=== PATIENT | male | born 1995 | race African-American/Black ===

== ENCOUNTER 2020-05-12 20:39 | Emergency (ER) | payer OTHER ==
[~2020-05-12] VITALS: Ht 170.2 cm; Wt 68.4 kg
--- NOTE | 2020-05-12 20:42 | PHYS DOC ---
Past History Past Medical History History of chlamydia-treated General Adult HPI: HPI: ".. I have been feeling sick for a few days now... Fever, chills, achy, sweaty, dizzy,... And I vomited once yesterday and I vomited again today vomit today was just gastric acid... I am supposed to go to [facility] tomorrow for the symptoms but I could not wait"... 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 Patient recently transferred to [place] from [place] in December. No recent travel overseas assignments. No specific ill contacts. Has been having symptoms for for 1 to 2 weeks. Patient states he completed a second Moderna vaccination yesterday. Patient normally healthy. Denies any previous illness other than chlamydia which was treated. Has had approximately 10 lifetime sex partners unprotected. Patient denies any recent dysuria or discharge. Patient denies any history of immunosuppression or other health history. Patient has been using djni-[id number]-[id number] aspirin, TheraFlu, and cold medications with no relief of symptoms. Does have a scheduled appointment tomorrow at [facility] for follow-up on current symptoms. Patient denies any bad food intake. Has not taken in much fluids because of nausea. Has been in the armed services past 4 years. No history of trauma. Patient does not think the second motor shot gave him any of the current symptoms since they started before the vaccination. [place] No contact with animals. Review of Systems: Review of Systems: Constitutional: Complains of fever or chills Eyes: Denies change in visual acuity HENT: D complains of nasal congestion and sore throat Respiratory: Complains of a nonproductive cough and occasional wheezing Cardiovascular: Denies chest pain or edema GI: Complains of generalized abdominal pain, nausea, vomiting, and reflux. Denies bloody stools or diarrhea : Denies dysuria Musculoskeletal: Complains of generalized muscle and bone pain. Complains of generalized back pain and joint pain Integument: Denies rash Neurologic: Complains of mild cephalgia, denies focal weakness or sensory changes . Endocrine: Denies polyuria or polydipsia Lymphatic: Denies swollen glands Psychiatric: Denies depression or anxiety Family History: Family History: There is a family history of diabetes and hypertension but well past age 70 and family members. Some family members have lived to 90s Current Medications: Current Meds: Has been using kxwe-[id number] TheraFlu flu, aspirin, and cold medications Allergies: Allergies: No known allergies to meds. Physical Exam: PE: Constitutional: Well developed, well nourished, reports acute distress, non- toxic appearance. [] HENT: Normocephalic, atraumatic, bilateral external ears normal, oropharynx dry, no oral exudates, nose slightly swollen turbinates with clear rhinorrhea. Postnasal drainage with some erythema Eyes: PERRLA, EOMI, conjunctiva normal, no discharge. [] Neck: Normal range of motion, no tenderness, supple, no stridor. [] Cardiovascular: Tachycardia heart rate regular rhythm, no murmur [] Lungs & Thorax: Bilateral breath sounds equal apex with couple scattered areas of wheezing particularly in bases on auscultation [] Abdomen: Bowel sounds hyperactive, soft, no tenderness, no masses, no pulsatile masses. [] Circumcised male. Testicles descended. No penile discharge. No groin adenopathy Skin: Warm, diaphoretic, no erythema, no rash. Multiple tattoos Back: No tenderness, no CVA tenderness. [] Extremities: No tenderness, no cyanosis, no clubbing, ROM intact, no edema. No cording appreciated Neurologic: Alert and oriented X 3, moves all extremities on request, does have distal sensory no focal deficits noted. [] DTRs +2 patella and brachial Psychologic: Affect anxious, judgement normal, mood normal. [] EKG: EKG: My interpretation EKG shows a sinus rhythm at 80 bpm. Mild leftward axis. But no findings acute STEMI with contralateral changes. [] Radiology/Procedures: Radiology/Procedures: [][address] [address] IMAGING REPORT Signed PATIENT: GLORY DALAL ACCOUNT: [id number] : 1995 LOCATION: ER AGE: 24 SEX: M EXAM STATUS: PRE ER ORD. PHYSICIAN: RASHEEDA FISH MD REASON: n,v, reflux, pain PROCEDURE: ACUTE ABDOMEN SERIES Exam: Acute abdominal series INDICATION: Nausea, vomiting, reflux TECHNIQUE: Frontal view of chest with upright and supine views of the abdomen Comparisons: None FINDINGS: The cardiomediastinal silhouette and pulmonary vessels are within normal limits. The lung and pleural spaces are clear. Air and stool are noted throughout the colon to level the rectum in a nonobstructive bowel gas pattern. No suspicious masses or calcifications. Visualized osseous structures are unremarkable. IMPRESSION: 1. Nonobstructive bowel gas pattern. 2. No acute cardiopulmonary process. Electronically signed by: Kwabena Dixon MD (05/12/2020 10:07 PM) [facility] DICTATED AND SIGNED BY: KWABENA DIXON MD DATE: 05/12/202205 CC: RASHEEDA FISH MD; PCP,UNKNOWN ~MTH0 0 Heart Score: HEART Score for Chest Pain: HEART Score for Chest Pain Response (Comments) Value History Slighlty/Non-Suspicious 0 ECG Normal 0 Age < 45 0 Risk Factors No Risk Factors 0 Total 0 Risk Factors: Risk Factors: DM, Current or recent (<one month) smoker, HTN, HLP, family history of CAD, obesity. Risk Scores: Score 0 - 3: 2.5% MACE over next 6 weeks - Discharge Home Score 4 - 6: 20.3% MACE over next 6 weeks - Admit for Clinical Observation Score 7 - 10: 72.7% MACE over next 6 weeks - Early Invasive Strategies Course & Med Decision Making: Course & Med Decision Making Patient push fluids. Take Tylenol and ibuprofen for pain. Or fever. Patient take Zofran as needed for nausea and vomiting. Patient remain on clear fluids next 2 days. No solids or milk products. Must allow bowel rest. Keep follow-up with [facility]. Consider getting rapid Covid at [facility]. Follow-up Covid test here. For marked discomfort may take Vicoprofen up to 4 times a day. Pertinent Labs and Imaging studies reviewed. (See chart for details) patient currently has a negative flu and negative strep test. Recommend patient stay on isolation until results of current Covid test or a rapid Covid test. Must wear a mask outside of home. Return if any concerns. Patient received LR IV fluids, Toradol, Zofran, Pepcid and Tylenol. Impression: 1. Viral syndrome 2. Dehydration creatinine 1.4 [] Dragon Disclaimer: Dragon Disclaimer: This electronic medical record was generated, in whole or in part, using a voice recognition dictation system. Departure Departure: Referrals: PCP,UNKNOWN (PCP) Scripts Famotidine (PEPCID) 20 Mg Tablet 20 MG PO BID for gerd, #60 TAB Prov: RASHEEDA FISH MD 05/12/20 Hydrocodone/Ibuprofen (HYDROCODONE-IBUPROFEN 7.5-200 ) 1 Each Tablet 1 TAB PO PRN Q6HRS PRN for PAIN, #30 TAB 0 Refills Prov: RASHEEDA FISH MD 05/12/20 Ondansetron Hcl (ZOFRAN) 4 Mg Tablet 8 MG PO QIDPRN PRN for NAUSEA/VOMITING, #30 TAB Prov: RASHEEDA FISH MD 05/12/20 Dragon Disclaimer This chart was dictated in whole or in part using Voice Recognition software in a busy, high-work load, and often noisy Emergency Department environment. It may contain unintended and wholly unrecognized errors or omissions. RASHEEDA FISH MD May 12, 2020 20:42
[2020-05-12 21:49] LABS: BASO % 1 % (0-3); EOS # 0.1 x10^3/uL (0.0-0.7); EOS % 1 % (0-3); HEMATOCRIT 47.1 % (39.0-53.0); HEMOGLOBIN 15.9 g/dL (13.0-17.5); LYMPH # 1.8 x10^3/uL (1.0-4.8); LYMPH % 20 % (24-48); MEAN CORPUSCULAR HEMOGLOBIN 32 pg (25-35); MEAN CORPUSCULAR HGB CONC 34 g/dL (31-37); MEAN CORPUSCULAR VOLUME 93 fL (79-100); MONO # 1.6 x10^3/uL (0.0-1.1); MONO % 18 % (0-9); NEUT # 5.5 x10^3uL (1.8-7.7); NEUT % 61 % (31-73); PLATELET COUNT 197 x10^3/uL (140-400); RED BLOOD COUNT 5.05 x10^6/uL (4.30-5.70)
[2020-05-12 21:51] LABS: CALCIUM 9.7 mg/dL (8.5-10.1); CREATININE 1.4 mg/dL (0.7-1.3); GFR 62.8; POTASSIUM 3.9 mmol/L (3.5-5.1)
[2020-05-12 21:58] LABS: ALBUMIN 3.9 g/dL (3.4-5.0); DIRECT BILIRUBIN 0.2 mg/dL (0.0-0.2); TOTAL BILIRUBIN 0.7 mg/dL (0.2-1.0); TOTAL PROTEIN 7.6 g/dL (6.4-8.2)
[2020-05-12] MEDS ORDERED: ONDANSETRON PF 4 MG/2 ML VIAL. IVP ONE (22:00)
[2020-05-12] MEDS ORDERED: FAMOTIDINE 20 MG/2 ML VIAL IVP ONE (22:00)
[2020-05-12] MEDS ORDERED: KETOROLAC 30 MG/ML VIAL. IVP ONE (22:00)
[2020-05-12] MEDS ORDERED: IV RINGERS SOLUTION,LACTATED 1,000 ML IV SCH (22:00)
[2020-05-12] MEDS ORDERED: ACETAMINOPHEN 500 MG TABLET PO ONE (22:00)
[2020-05-12 22:02] LABS: BILIRUBIN,URINE SMALL (NEG); CLARITY,URINE CLEAR; COLOR,URINE YELLOW; GLUCOSE,URINE NEG (NEG); NITRITE,URINE NEG (NEG)
[2020-05-12 22:03] LABS: BACTERIA,URINE 0 /HPF (0-FEW); SQUAMOUS EPITHELIAL CELL,UR OCC /LPF; WBC,URINE OCC /HPF (0-4)
--- NOTE | 2020-05-12 22:09 | RAD ---
Exam: Acute abdominal series INDICATION: Nausea, vomiting, reflux TECHNIQUE: Frontal view of chest with upright and supine views of the abdomen Comparisons: None FINDINGS: The cardiomediastinal silhouette and pulmonary vessels are within normal limits. The lung and pleural spaces are clear. Air and stool are noted throughout the colon to level the rectum in a nonobstructive bowel gas patter n. No suspicious masses or calcifications. Visualized osseous structures are unremarkable. IMPRESSION: 1. Nonobstructive bowel gas pattern. 2. No acute cardiopulmonary process. Electronically signed by: Kwabena Jose MD (05/12/2020 10:07 PM) [facility]
[2020-05-12 22:15] LABS: INFLUENZA A PATIENT NEGATIVE (NEGATIVE); INFLUENZA B PATIENT NEGATIVE (NEGATIVE)
--- NOTE | 2020-05-12 22:59 | EKG ---
[address] [address] Test Date: 2020-05-12 Test Time: 22:04:21 Pat Name: GLORY DALAL Department: Room: Gender: M Phytopathologist: PHILLIP : 1995 Requested By: RASHEEDA FISH Order Number: [id number] Reading MD: Measurements Intervals Thompson Rate: 80 P: -19 NC: 162 QRS: -14 QRSD: 82 T: 15 QT: 350 QTc: 407 Interpretive Statements SINUS RHYTHM LEFTWARD AXIS OTHERWISE NORMAL ECG RI6.02 No previous ECG available for comparison
[2020-05-12] MEDS ORDERED: ONDA4TAB7 PO (23:38)
[2020-05-12] MEDS ORDERED: HYDR-1179 PO (23:38)
[2020-05-12] MEDS ORDERED: FAMO-63 PO (23:38)
[2020-05-12 23:45] VITALS: BP 118/85
== END 2020-05-12 23:45 | disposition home or self-care (01) ==
LOC: ER 20:39
DX: E86.0 Dehydration (principal); B34.9 Viral infection, unspecified; R51.9 Headache, unspecified; R10.13 Epigastric pain; Z20.822 Contact with and (suspected) exposure to COVID-19
CPT/HCPCS: 36415; 74022; 80048; 80076; 81001; 82550; 83605; 83690; 84484; 85025; 85610; 85730; 87070; 87804; 87880; 93005; 96361; 96374; 96375; 99285; C9803; J1885; J2405; J3490; J7120; U0003

== ENCOUNTER 2020-10-01 23:59 | Emergency (ER) | payer OTHER ==
[~2020-10-01] VITALS: Ht 170.2 cm; Wt 72.7 kg
[~2020-10-01 23:59] MED LIST: FAMO-63 PO; HYDR-1179 PO; ONDA4TAB7 PO
[2020-10-02 00:20] VITALS: BP 137/57
[2020-10-02] MEDS ORDERED: LIDOCAINE 1%/EPI 1:100,000 10 ML VIAL. ONE (00:34)
[2020-10-02] MEDS ORDERED: NEOMY/BACITR/POLYMYXIN OINT PACKET. TP ONE (01:00)
[2020-10-02] MEDS ORDERED: LIDOCAINE 1%/EPI 1:100,000 20 ML VIAL. IJ ONE (01:00)
[2020-10-02] MEDS ORDERED: LIDOCAINE 2%/EPI 1:100,000 20 ML VIAL. IJ ONE (01:00)
--- NOTE | 2020-10-02 01:16 | PHYS DOC ---
Past History Past Medical History: No Pertinent History Past Surgical History: No Surgical History Smoking: Non-smoker Alcohol Use: Occasionally Drug Use: None General Adult EDM: Chief Complaint: FINGER INJURY HPI: HPI: Patient is a 24 year old male who presents with thumb injury that occurred at approx 1600 hrs yesterday when caught thumb in metal door. Thumb will no stop bleeding despite pressure bandaging. Review of Systems: Review of Systems: Constitutional: Denies fever or chills Eyes: Denies redness or eye pain HENT: Denies nasal congestion or sore throat Respiratory: Denies cough or shortness of breath Cardiovascular: Denies chest pain or palpitations GI: Denies abdominal pain, nausea, or vomiting : Denies dysuria or hematuria Musculoskeletal: Denies back pain or joint pain Integument: Denies rash or skin lesions Neurologic: Denies headache, focal weakness or sensory changes Complete systems were reviewed and found to be within normal limits, except as documented in this note. Current Medications: Current Meds: Current Medications Medications (Trade) Dose Ordered Sig/Katarzyna Start Time Stop Time Status Last Admin Dose Admin Lidocaine/ Epinephrine (Xylocaine 1%-Epi 1:100,000) 10 ml STK-MED ONCE 10/02/20 00:34 10/02/20 00:34 DC Lidocaine/ Epinephrine (Xylocaine 2%-Epi 1:100,000) 20 ml 1X ONCE 10/02/20 01:00 10/02/20 00:29 DC Neomycin/ Polymyxin/ Bacitracin (Triple Antibiotic Ointment) 1 pkt 1X ONCE 10/02/20 01:00 10/02/20 01:01 DC 10/02/20 00:38 1 PKT Allergies: Allergies: Allergies Coded Allergies Type Severity Reaction Last Updated Verified No Known Drug Allergies 05/12/20 No Physical Exam: PE: Constitutional: Well developed, well nourished, no acute distress, non-toxic appearance HENT: Normocephalic, atraumatic Eyes: EOMI, conjunctiva normal, no discharge Neck: Normal range of motion, no tenderness, supple Lungs & Thorax: No respiratory distress, equal chest rise and fall Cardiovascular: Regular rate and rhythm. No murmurs. Abdomen: Soft, no tenderness Skin: Warm, dry, no erythema, no rash Back: No tenderness, no CVA tenderness Extremities: No tenderness, ROM intact, no edema. Injury to medial right thumb. Neurologic: Alert and oriented X 3, normal motor function, normal sensory function, no focal deficits noted Psychologic: Affect normal, judgment normal Current Patient Data: Vital Signs: Vital Signs Date Time Temp Pulse Resp B/P (MAP) Pulse Ox O2 Delivery O2 Flow Rate FiO2 10/02/20 00:20 98.6 69 14 137/57 100 Room Air EKG: EKG: [] Radiology/Procedures: Radiology/Procedures: [] Heart Score: C/O Chest Pain: N/A Course & Med Decision Making: Course & Med Decision Making Pt presented with right thumb injury with continuously bleeding. Sutures would be unsuitable to close wound or control bleeding. Bleeding controlled through electrocautery followed by bandaging. Patient stable for discharge with outpatient follow-up with PCP. Discussed findings and plan with patient, who acknowledges understanding and agreement. Eva Disclaimer: Eva Disclaimer: This electronic medical record was generated, in whole or in part, using a voice recognition dictation system. Departure Departure: Impression: Primary Impression: Avulsion of skin of finger Qualified Codes: S61.209A - Unspecified open wound of unspecified finger without damage to nail, initial encounter Disposition: HOME / SELF CARE / HOMELESS Condition: STABLE Referrals: PCP,UNKNOWN (PCP) Patient Instructions: Deep Skin Avulsion Additional Instructions: Do not soak your wound. You may shower. Clean wound daily with soap and water. Change dressing 2 times daily. Use over the counter antibiotic ointment with each dressing change. Use [id number] ibuprofen and/or Tylenol for pain or discomfort. DIAZ SOFIA DO Oct 02, 2020 01:16
== END 2020-10-02 01:24 | disposition home or self-care (01) ==
LOC: ER 23:59
DX: S61.101A Unspecified open wound of right thumb with damage to nail, initial encounter (principal); W23.0XXA Caught, crushed, jammed, or pinched between moving objects, initial encounter; Y93.89 Activity, other specified; Y92.89 Other specified places as the place of occurrence of the external cause; Y99.8 Other external cause status
CPT/HCPCS: 99283

== ENCOUNTER 2020-12-31 12:27 | Emergency (ER) | payer OTHER ==
[~2020-12-31] VITALS: Ht 170.2 cm; Wt 74.4 kg
[2020-12-31 12:27] VITALS: BP 124/75
--- NOTE | 2020-12-31 12:53 | PHYS DOC ---
Past History Past Medical History: No Pertinent History Past Surgical History: No Surgical History Smoking: Non-smoker Alcohol Use: Occasionally Drug Use: None General Adult EDM: Chief Complaint: TESTICULAR PAIN OR INJURY HPI: HPI: 25-year-old male presents to the emergency department complaining of right flank pain and right testicular pain for the last several hours. He reports mild urinary difficulty today as well, has not noticed any blood. He has not had this pain before and states his pain is dull and located only on the right side. He denies any associated nausea vomiting or stool changes besides a little bit of diarrhea which she is unconcerned about. He is not taking anything for pain is refusing pain medicine at this time. The patient denies nausea, vomiting, fever, chills, chest pain, shortness of breath, cough, recent trauma, or any other complaints. Review of Systems: Review of Systems: ROS is otherwise negative except for what was mentioned in the HPI Family History: Family History: Noncontributory Allergies: Allergies: Allergies Coded Allergies Type Severity Reaction Last Updated Verified No Known Drug Allergies 05/12/20 No Physical Exam: PE: Constitutional: No acute distress, non-toxic appearance. HENT: Atraumatic, bilateral external ears normal, nose normal. Eyes: PERRLA, EOMI, conjunctiva normal, no discharge. Neck: Normal range of motion, supple, no stridor. Cardiovascular: Heart rate regular rhythm. 2+ radial pulses Lungs & Thorax: No respiratory distress, symmetrical expansion. Abdomen: Soft, no tenderness. No CVA tenderness Genitourinary: Right testicular tenderness to palpation, no obvious mass, no epididymal tenderness, no penile discharge, no penile lesions Skin: Warm, dry. Extremities: No tenderness, no cyanosis, ROM intact, no edema. Neurologic: Alert and oriented X 3, normal motor function, normal sensory function, no focal deficits noted. Non ataxic gait. GCS 15. Psychologic: Affect normal, judgment normal, mood normal. Current Patient Data: Labs: Laboratory Tests Test 12/31/20 12:36 12/31/20 13:19 Urine Collection Type Unknown Urine Color Yellow Urine Clarity Clear Urine pH 7.0 Urine Specific [place] 1.020 Urine Protein Neg (NEG-TRACE) Urine Glucose (UA) Neg mg/dL (NEG) Urine Ketones (Stick) Neg mg/dL (NEG) Urine Blood Mod (NEG) Urine Nitrite Neg (NEG) Urine Bilirubin Neg (NEG) Urine Urobilinogen Dipstick 0.2 mg/dL (0.2 mg/dL) Urine Leukocyte Esterase Neg (NEG) Urine RBC 20-40 /HPF (0-2) Urine WBC Occ /HPF (0-4) Urine Squamous Epithelial Cells Few /LPF Urine Bacteria 0 /HPF (0-FEW) White Blood Count 6.9 x10^3/uL (4.0-11.0) Red Blood Count 4.68 x10^6/uL (4.30-5.70) Hemoglobin 14.8 g/dL (13.0-17.5) Hematocrit 44.1 % (39.0-53.0) Mean Corpuscular Volume 94 fL (79-100) Mean Corpuscular Hemoglobin 32 pg (25-35) Mean Corpuscular Hemoglobin Concent 34 g/dL (31-37) Red Cell Distribution Width 13.2 % (11.5-14.5) Platelet Count 240 x10^3/uL (140-400) Neutrophils (%) (Auto) 58 % (31-73) Lymphocytes (%) (Auto) 25 % (24-48) Monocytes (%) (Auto) 9 % (0-9) Eosinophils (%) (Auto) 6 % (0-3) H Basophils (%) (Auto) 2 % (0-3) Neutrophils # (Auto) 4.1 x10^3uL (1.8-7.7) Lymphocytes # (Auto) 1.7 x10^3/uL (1.0-4.8) Monocytes # (Auto) 0.6 x10^3/uL (0.0-1.1) Eosinophils # (Auto) 0.4 x10^3/uL (0.0-0.7) Basophils # (Auto) 0.1 x10^3/uL (0.0-0.2) Sodium Level 139 mmol/L (136-145) Potassium Level 4.0 mmol/L (3.5-5.1) Chloride Level 103 mmol/L (98-107) Carbon Dioxide Level 31 mmol/L (21-32) Anion Gap 5 (6-14) L Blood Urea Nitrogen 9 mg/dL (8-26) Creatinine 1.2 mg/dL (0.7-1.3) Estimated GFR (Cockcroft-Gault) 90.0 BUN/Creatinine Ratio 8 (6-20) Glucose Level 93 mg/dL (70-99) Calcium Level 9.5 mg/dL (8.5-10.1) Total Bilirubin 0.3 mg/dL (0.2-1.0) Aspartate Amino Transferase (AST) 25 U/L (15-37) Alanine Aminotransferase (ALT) 65 U/L (16-63) H Alkaline Phosphatase 125 U/L (46-116) H Total Protein 7.4 g/dL (6.4-8.2) Albumin 4.1 g/dL (3.4-5.0) Albumin/Globulin Ratio 1.2 (1.0-1.7) Lipase 79 U/L (73-393) Vital Signs: Vital Signs Date Time Temp Pulse Resp B/P (MAP) Pulse Ox O2 Delivery O2 Flow Rate FiO2 12/31/20 12:27 98.6 75 14 124/75 (91) 99 Room Air Radiology/Procedures: Radiology/Procedures: PROCEDURE: CT ABDOMEN PELVIS WO CONTRAST INDICATION: Reason: right flank pain / Spl. Instructions: / History: COMPARISON: Plain film from May 12, 2020 TECHNIQUE: Axial CT images were obtained through the abdomen and pelvis without intravenous contrast. One or more of the following individualized dose reduction techniques were utilized for this examination: 1. Automated exposure control; 2. Adjustment of the mA and/or kV according to patient size; 3. Use of iterative reconstruction technique. FINDINGS: Vascular: No abdominal aortic aneurysm. Hepatobiliary: No intrahepatic biliary duct dilation. Pancreas: No peripancreatic edema. Spleen: Spleen unremarkable. Renal/Bladder: Bilateral nonobstructive renal stones. Mild right-sided hydronephrosis and proximal hydroureter with a right proximal ureter stone measuring 4 mm. Urinary bladder is partially distended with mild prominence the wall. Gastrointestinal: No periappendiceal inflammatory changes. No dilated loops of bowel to suggest obstruction. Sclerotic lesion at the left proximal femur most commonly from bone island. IMPRESSION: * Mild right-sided hydronephrosis with right ureter stone. Electronically signed by: Michael Martinez MD (12/31/2020 1:54 PM) PROCEDURE: TESTICULAR/SCROTUM INDICATION: Reason: right testicular pain / Spl. Instructions: / History: COMPARISON: None. TECHNIQUE: Grayscale, color and spectral doppler ultrasound images obtained of the scrotum. FINDINGS: Right Testicle: 45 x 28 x 22 mm. Vascular flow is identified. Left Testicle: 41 x 30 x 24 mm. Vascular flow is identified. Small left-sided hydrocele. IMPRESSION: * Vascular flow is identified to the bilateral testicles. Electronically signed by: Michael Martinez MD (12/31/2020 1:18 PM) Heart Score: C/O Chest Pain: No Course & Med Decision Making: Course & Med Decision Making Objective work-up is consistent with a right ureteral lithiasis causing mild hydronephrosis and referred pain to the scrotum. Patient will be placed on oxycodone and Flomax. His pain is well controlled he appears well clinically. He was given a work note for 3 days Departure Departure: Impression: Primary Impression: Right nephrolithiasis Disposition: 01 HOME / SELF CARE / HOMELESS Condition: GOOD Referrals: PCP,UNKNOWN (PCP) Patient Instructions: Kidney Stones, [id number] Additional Instructions: You were seen in the emergency department for a kidney stone that will hopefully pass. We are writing you a prescription for pain medication as well as Flomax, which will hopefully help assist with passing the stone. We have also given you nausea medication if you should need it. You should check your urine for the stone. Kidney stones can pass in a few days or may take a few weeks depending on many factors. Your ultrasound did not show any signs that your stone is obstructing. You should return to the emergency department if you develop worsening pain, fever, continued bloody urine, lightheadedness, shortness of breath, chest pain, or any other new or concerning symptoms, or difficulty eating or drinking due to nausea. Do not drive while taking the pain medicine and please take as directed. Please follow up with a primary care doctor or urologist in a few days if you are not feeling better. Scripts Hydrocodone Bit/Acetaminophen (HYDROCODONE-APAP 5-325 ) 1 Each Tablet 1 TAB PO PRN Q6HRS PRN for PAIN for 3 Days, #12 TAB 0 Refills Prov: PARISH LAM DO 12/31/20 Tamsulosin Hcl (FLOMAX) 0.4 Mg Cap.er.24h 1 CAP PO DAILY for kidney stone, #30 CAP 11 Refills Prov: PARISH LAM DO 12/31/20 PARISH LAM DO Dec 31, 2020 12:52
--- NOTE | 2020-12-31 13:20 | RAD ---
INDICATION: Reason: right testicular pain / Spl. Instructions: / History: COMPARISON: None. TECHNIQUE: Grayscale, color and spectral doppler ultrasound images obtained of the scrotum. FINDINGS: Right Testicle: 45 x 28 x 22 mm. Vascular flow is identified. Left Testicle: 41 x 30 x 24 mm. Vascular flow is identified. Small left-sided hydrocele. IMPRESSION: * Vascular flow is identified to the bilateral testicles. Electronically signed by: Michael Martinez MD (12/31/2020 1:18 PM) [id number]
[2020-12-31 13:31] LABS: BILIRUBIN,URINE NEG (NEG); CLARITY,URINE CLEAR; COLOR,URINE YELLOW; GLUCOSE,URINE NEG (NEG); NITRITE,URINE NEG (NEG); UROBILINOGEN,URINE 0.2 mg/dL (0.2 mg/dL)
[2020-12-31 13:32] LABS: BACTERIA,URINE 0 /HPF (0-FEW); RBC,URINE 20-40 /HPF (0-2); SQUAMOUS EPITHELIAL CELL,UR FEW /LPF; WBC,URINE OCC /HPF (0-4)
[2020-12-31 13:51] LABS: BASO # 0.1 x10^3/uL (0.0-0.2); BASO % 2 % (0-3); CALCIUM 9.5 mg/dL (8.5-10.1); CREATININE 1.2 mg/dL (0.7-1.3); EOS # 0.4 x10^3/uL (0.0-0.7); EOS % 6 % (0-3); HEMATOCRIT 44.1 % (39.0-53.0); HEMOGLOBIN 14.8 g/dL (13.0-17.5); LYMPH # 1.7 x10^3/uL (1.0-4.8); LYMPH % 25 % (24-48); MEAN CORPUSCULAR HEMOGLOBIN 32 pg (25-35); MEAN CORPUSCULAR HGB CONC 34 g/dL (31-37); MEAN CORPUSCULAR VOLUME 94 fL (79-100); MONO # 0.6 x10^3/uL (0.0-1.1); MONO % 9 % (0-9); NEUT # 4.1 x10^3uL (1.8-7.7); NEUT % 58 % (31-73); PLATELET COUNT 240 x10^3/uL (140-400); RED BLOOD COUNT 4.68 x10^6/uL (4.30-5.70); RED CELL DISTRIBUTION WIDTH 13.2 % (11.5-14.5); WHITE BLOOD COUNT 6.9 x10^3/uL (4.0-11.0)
--- NOTE | 2020-12-31 13:56 | RAD ---
INDICATION: Reason: right flank pain / Spl. Instructions: / History: COMPARISON: Plain film from May 12, 2020 TECHNIQUE: Axial CT images were obtained through the abdomen and pelvis without intravenous contrast. One or more of the following individualized dose reduction techniques were utilized for this examinat ion: 1. Automated exposure control; 2. Adjustment of the mA and/or kV according to patient size; 3 . Use of iterative reconstruction technique. FINDINGS: Vascular: No abdominal aortic aneurysm. Hepatobiliary: No intrahepatic biliary duct dilation. Pancreas: No peripancreatic edema. Spleen: Spleen unremarkable. Renal/Bladder: Bilateral nonobstructive renal stones. Mild right-sided hydronephrosis and proximal hy droureter with a right proximal ureter stone measuring 4 mm. Urinary bladder is partially distended w ith mild prominence the wall. Gastrointestinal: No periappendiceal inflammatory changes. No dilated loops of bowel to suggest obstr uction. Sclerotic lesion at the left proximal femur most commonly from bone island. IMPRESSION: * Mild right-sided hydronephrosis with right ureter stone. Electronically signed by: Michael Martinez MD (12/31/2020 1:54 PM) [id number]
[2020-12-31 13:57] LABS: ALBUMIN 4.1 g/dL (3.4-5.0); ALBUMIN/GLOBULIN RATIO 1.2 (1.0-1.7); TOTAL BILIRUBIN 0.3 mg/dL (0.2-1.0); TOTAL PROTEIN 7.4 g/dL (6.4-8.2)
[2020-12-31] MEDS ORDERED: HYDR-2155 PO (14:31)
[2020-12-31] MEDS ORDERED: TAMS0.4C97 PO (14:31)
== END 2020-12-31 14:38 | disposition home or self-care (01) ==
LOC: ER 12:27
DX: N20.0 Calculus of kidney (principal)
CPT/HCPCS: 36415; 74176; 76870; 80053; 81001; 83690; 85025; 99285-25